=== PATIENT | male | born 1990 | race Caucasian/White ===

== ENCOUNTER 2016-09-13 10:30 | Day surgery (SDC) | payer BC ==
[~2016-09-13 10:30] MED LIST: Lactated Ringers 1,000 ML IV SCH; Sodium Chloride 0.9% 10 ML Syringe FLUSH PRN; Sodium Chloride 0.9% 2.5 ML Syringe FLUSH PRN
[2016-09-13] MEDS ORDERED: fentaNYL 100 MCG/2 ML SDV IVPUSH PRN ×4 (10:35→12:37)
--- NOTE | 2016-09-13 10:40 | PCM.PREANE ---
Preanesthetic Assessment - Anesthesia/Transfusion/Family Hx Anesthesia History: Prior Anesthesia Without Reaction - Review of Systems General: No Symptoms Pulmonary: No Symptoms Cardiovascular: No Symptoms Gastrointestinal: No symptoms Neurological: No Symptoms Other: Reports: None - Physical Assessment Height: 5 ft 10 in Weight: 99.79 kg ASA Class: 2E Mental Status: Alert & Oriented x3 Airway Class: Mallampati = 2 Dentition: Reports: Normal Dentition Thyro-Mental Finger Breadths: 3 Mouth Opening Finger Breadths: 3 ROM/Head Extension: Full Lungs: Clear to auscultation, Normal respiratory effort Cardiovascular: Regular Rate, Regular Rhythm - Allergies Allergies/Adverse Reactions: Allergies Allergy/AdvReac Type Severity Reaction Status Date / Time No Known Allergies Allergy Verified 10/07/13 14:24 - Acknowledgements Anesthesia Type Planned: General Anesthesia Pt an Appropriate Candidate for the Planned Anesthesia: Yes Alternatives and Risks of Anesthesia Discussed w Pt/Guardian: Yes Pt/Guardian Understands and Agrees with Anesthesia Plan: Yes PreAnesthesia Questionnaire HEENT History: Reports: None Cardiovascular History: Reports: None Respiratory History: Reports: None Gastrointestinal History: Reports: Other (See Below) Other Gastrointestinal History: chrohns Genitourinary History: Reports: None Musculoskeletal History: Reports: None Neurological History: Reports: None Psychiatric History: Reports: None Endocrine/Metabolic History: Reports: Obesity/BMI 30+ Hematologic History: Reports: None Immunologic History: Reports: Other (see below) (Hx of chronic Prednisone therapy) Oncologic (Cancer) History: Reports: None Dermatologic History: Reports: None - Infectious Disease History Infectious Disease History: Reports: None - Past Surgical History HEENT Surgical History: Reports: Oral surgery Other Musculoskeletal Surgeries/Procedures:: gynecomastia surgery Dermatological Surgical History: Reports: Plastic surgical reconstruction/repair - SUBSTANCE USE Smoking Status *Q: Never Smoker Tobacco Use Within Last Twelve Months: Smokeless Tobacco Recreational Drug Use History: No - HOME MEDS Home Medications: Home Meds Bacitracin [Bacitracin Oint 1 GM] 1 dose TOP DAILY #10 packet 02/01/16 [Rx] Ibuprofen [Motrin] 800 mg PO Q8H #30 tablet 02/01/16 [Rx] Mesalamine [Pentasa] 1,000 mg PO BID 02/01/16 [History] Prednisone [IMW: predniSONE] 30 mg PO WITHBREAKFAST 02/01/16 [History] - CURRENT (IN HOUSE) MEDS Current Meds: Current Medications Fentanyl (Sublimaze) 50 mcg IVPUSH Q5M PRN PRN Reason: Pain (severe 7-10) Stop: 09/14/16 10:35 Fentanyl (Sublimaze) 50 mcg IVPUSH Q45M PRN PRN Reason: Pain (severe 7-10) Stop: 09/13/16 12:30 Lactated Ringer's (Ringers, Lactated) 1,000 mls @ 300 mls/hr IV ASDIRECTED JABARI Stop: 09/13/16 13:49 Sodium Chloride (Saline Flush) 10 ml FLUSH ASDIRECTED PRN PRN Reason: Keep Vein Open Sodium Chloride (Saline Flush) 2.5 ml FLUSH ASDIRECTED PRN PRN Reason: Keep Vein Open Discontinued Medications Fentanyl (Sublimaze) 50 mcg IVPUSH Q5M PRN PRN Reason: Pain (severe 7-10) Stop: 09/13/16 12:30
[2016-09-13] MEDS ORDERED: Piperacillin/Tazobactam 3.375 GM in Sodium Chloride 0.9% 50 ML IV ONE (11:15)
[2016-09-13] MEDS ORDERED: Lidocaine 2% 5 ML SDV ONE (11:23)
[2016-09-13] MEDS ORDERED: Bupivacaine 0.25% 10 ML SDV ONE (11:23)
[2016-09-13] MEDS ORDERED: fentaNYL 250 MCG/5 ML SDV ONE (11:24)
[2016-09-13] MEDS ORDERED: Propofol 200 MG/20 ML SDV ONE (11:24)
[2016-09-13] MEDS ORDERED: Midazolam 1 MG/ML 2 ML SDV ONE (11:24)
[2016-09-13] MEDS ORDERED: Ondansetron 4 MG/2 ML SDV ONE (11:25)
[2016-09-13] MEDS ORDERED: Neostigmine Methylsulfate 1 MG/ML 5 ML Syringe ONE (11:25)
[2016-09-13] MEDS ORDERED: Rocuronium 10 MG/ML 10 ML Syringe ONE (11:25)
[2016-09-13] MEDS ORDERED: Hydrocortisone Sodium Succinate 100 MG/2 ML SDV ONE (11:29)
[2016-09-13] MEDS ORDERED: HYDROmorphone 2 MG/ML Syringe ONE (11:29)
[2016-09-13] MEDS ORDERED: HYDROmorphone 2 MG/ML Syringe IVPUSH ONE (12:37)
--- NOTE | 2016-09-13 13:00 | PCM.OPNOTE ---
- General Post-Op/Procedure Note Date of Surgery/Procedure: 09/13/16 Operative Procedure(s): Exam under anesthesia, seton placement Findings: Anterior intrasphincteric anal fistula, posterior anal fissure Pre Op Diagnosis: perianal abscess Post-Op Diagnosis: Anterior anal fistula, posterior anal fissure Anesthesia Technique: General ET tube Primary Surgeon: Mee Baker EBL in mLs: 3 Surgical Drain/Tube Type: [place] Complications: none Condition: Good
[2016-09-13 18:11] VITALS: BP 119/68
[2016-09-13] MEDS ORDERED: Acetaminophen/oxyCODONE 325-5 MG Tab PO ONE (20:00)
--- NOTE | 2016-09-13 20:58 | OR ---
SURGEON: SMITH JACKSON MD DATE OF PROCEDURE: 09/13/2016 PREOPERATIVE DIAGNOSIS: Perianal abscess. POSTOPERATIVE DIAGNOSIS: Posterior anal fissure, anterior intersphincteric perianal fistula and perianal abscess. PROCEDURE: Exam under anesthesia, seton placement. ANESTHESIA: General endotracheal anesthesia. ESTIMATED BLOOD LOSS: 3 mL. FINDINGS: Chronic appearing posterior anal fissure. Anterior intersphincteric perianal fistula associated with perianal abscess. COMPLICATIONS: None. INDICATIONS: The patient is a 26-year-old male with a history of Crohn's disease. He is currently on Remicade. The patient developed perianal pain last Friday which has progressively worsened. The patient is now having issues with stool leakage as well as erythema, induration, and tenderness along the left buttock cheek. The patient's last bowel movement was yesterday and was slightly mucousy and bloody. The patient states that this is his normal bowel movement. On exam in the clinic, the patient had erythema and extreme tenderness on examination of the perianal area. I was unable to assist the area fully secondary to pain. Given his findings, I explained that I would need to examine him further under anesthesia. The patient and I discussed exam under anesthesia with possible incision and drainage of a perianal abscess and/or seton placement if the patient had a perianal fistula. We discussed the risks, including bleeding, further infection, or damage to surrounding structures, including the sphincteric muscles which may alter continence. The patient verbalized understanding and wishes to proceed. Of note, the patient has been on prednisone in the past, but has not been on it for 6 months. Because of this, we will not be giving him a perioperative steroid burst. The patient was admitted and given IV Zosyn perioperatively. NARRATIVE: The patient was brought to the operating room on the OR cart. The time-out was completed verifying the patient's name, age, date of , allergies, and procedure to be performed. General endotracheal anesthesia was induced. Once the patient was intubated, he was placed in the prone position on the operating room table. Care was taken to appropriately pad all of the patient's joints and bony surfaces. The buttock cheeks were taped laterally to allow adequate visualization of the perianal area. The anus and buttocks were prepped and draped in the usual standard fashion. On initial inspection, the patient was noted to have a chronic appearing posterior anal fissure. He was also noted to have an opening along the anterior anus along the midline. There was induration and erythema along the tissues just anterior to the anus. Upon palpation of this area, a large amount of purulence was expressed from the anterior anal fistula. No opening was noted around the anoderm. A small fistula probe was placed through the anterior anal fistula, which passed easily into a large cavity that tracked anteriorly. The fistula probe was angled towards the skin and there was a tenting of the skin along the anterior midline approximately 2 cm from this area. Using a 15 blade, I made a small cruciate incision over the top of the fistula probe. Cautery was used to then dissect down into the subcutaneous tissues, but I quickly encountered the fistula probe itself. The decision was made to place a loose seton through the area to allow adequate drainage. A small red rubber seton was passed through my skin opening through the anterior fistula. This was then made into a loop and secured using 2-0 silk ties. The area that contained the silk ties on the seton was then rotated so that the ties were inside the perianal abscess cavity. A small fistula probe was passed once again into the cavity, but no further areas of tracking were noted. I used a 0.25% Marcaine plain to anesthetize the area around the anterior anus. I then performed a bilateral peroneal nerve block using 10 mL of 0.25% Marcaine plain on both the right and left side. Using a bivalve retractor, I inspected the remainder of the anus. No other areas of drainage were noted. On digital rectal exam, no further areas of thickening or fistulas were noted. I did not note any inflammation of the perianal tissue more proximally. Fluffs were then placed next to the seton and were secured in place using mesh panties. The patient was then placed in supine position on the OR cart, awoken, and extubated successfully. All counts were complete and correct at the end of the case. The patient was taken to the PACU in stable condition. ANTONIO ALDANA /[id number] ANDREW
== END 2016-09-13 20:20 | disposition home or self-care (01) ==
LOC: MW.SDS 10:30 → MW.MS 10:34 → MW.SDS 20:20
PROVIDERS: ATTEND Surgery
DX: K60.3 Anal fistula (principal); K60.2 Anal fissure, unspecified; K50.90 Crohn's disease, unspecified, without complications; E66.9 Obesity, unspecified; Z68.30 Body mass index [BMI] 30.0-30.9, adult; Z79.899 Other long term (current) drug therapy; Z98.890 Other specified postprocedural states
CPT/HCPCS: 46020; A9270; J1170; J2250; J2405; J2543; J3010; J7050; J7120; 00902; J1720; J2704

== ENCOUNTER 2017-02-20 17:44 | Emergency (ER) | payer OTHER, BC ==
[2017-02-20] MEDS ORDERED: ceFAZolin 2 GM in Premix Bag 1 BAG IV ONE (17:47)
[2017-02-20] MEDS ORDERED: Morphine 2 MG/ML Syringe IVPUSH ONE (17:48)
[2017-02-20] MEDS ORDERED: Bupivacaine 0.25% 10 ML SDV INJECT ONE (18:59)
[2017-02-20] MEDS ORDERED: Bupivacaine 0.25% 10 ML SDV ONE (19:00)
--- NOTE | 2017-02-20 19:33 | PCM.HP ---
H&P History of Present Illness - General Date of Service: 02/20/17 Admit Problem/Dx: left index finger open proximal phalanx fracture Source of Information: Patient, RN History Limitations: Reports: No Limitations - History of Present Illness Initial Comments - Free Text/Narative: left index finger burst type crush injury with open proiximal phalanx fracture. Seen at [facility] and sent to us for definitive management. Discussed surgery tonight Onset of Symptoms: Reports: Today, Sudden Duration of Symptoms: Reports: Hour(s): Location: Reports: Upper Extremity, Left Quality: Reports: Ache, Pressure Severity: Moderate Improves with: Reports: Rest Worsens with: Reports: Movement Context: Reports: Trauma Associated Symptoms: Reports: No Other Symptoms Left 2-Index finger Pain Score (Numeric/FACES): 3 - Related Data Allergies/Adverse Reactions: Allergies Allergy/AdvReac Type Severity Reaction Status Date / Time No Known Allergies Allergy Verified 02/20/17 18:02 Home Medications: Home Meds . [No Known Home Meds] 02/20/17 [History] Past Medical History - Past Health History Medical/Surgical History: Denies Medical/Surgical History HEENT History: Reports: None Cardiovascular History: Reports: None Respiratory History: Reports: None Gastrointestinal History: Reports: Other (See Below) (crohns disease on REmicaide) Other Gastrointestinal History: chrohns Genitourinary History: Reports: None Other Genitourinary History: gynecomastia Musculoskeletal History: Reports: None Neurological History: Reports: None Psychiatric History: Reports: None Endocrine/Metabolic History: Reports: Obesity/BMI 30+ Hematologic History: Reports: None Immunologic History: Reports: Other (See Below) Oncologic (Cancer) History: Reports: None Dermatologic History: Reports: None - Infectious Disease History Infectious Disease History: Reports: Chicken Pox - Past Surgical History HEENT Surgical History: Reports: Oral Surgery GI Surgical History: Reports: None Other Male Surgeries/Procedures: bilateral breats surgery; rectal fistula Other Musculoskeletal Surgeries/Procedures:: gynecomastia surgery Dermatological Surgical History: Reports: Plastic Surgical Reconstruction/Repair Social & Family History - Family History Family Medical History: Noncontributory - Tobacco Use Smoking Status *Q: Never Smoker Second Hand Smoke Exposure: Yes - Caffeine Use Caffeine Use: Reports: Coffee, Energy Drinks Caffeine Use Comment: at least 1 drink each/day - Recreational Drug Use Recreational Drug Use: No H&P Review of Systems - Review of Systems: Review Of Systems: See Below General: Reports: No Symptoms HEENT: Reports: No Symptoms Cardiovascular: Reports: No Symptoms Musculoskeletal: Reports: Hand Pain (left) Psychiatric: Reports: No Symptoms Neurological: Reports: No Symptoms Exam - Exam Exam: See Below - Vital Signs Vital Signs: Last Vital Signs Temp 98.7 F 02/20/17 17:58 Pulse Resp 18 02/20/17 17:58 BP 146/84 H 02/20/17 17:58 Pulse Ox 96 02/20/17 17:58 Weight: 246 lb 14.684 oz - Exam General: Alert, Oriented, Cooperative HEENT: EOMI Lungs: Clear to Auscultation, Normal Respiratory Effort Cardiovascular: Regular Rate, Regular Rhythm Extremities: Limited Range of Motion (able to wiggle but unable to move significantly due to pain. Tendons appear intact at least partially. ), Other Skin: Wound (open laceration to dorsal finger - 1cm) Neuro Extensive - Mental Status: Alert, Oriented x3 *Q Meaningful Use (ADM) - VTE *Q VTE Criteria *Q: - Stroke *Q Stroke Criteria *Q: - AMI *Q AMI Criteria *Q: - Problem List (1) Open fracture of proximal phalanx of left index finger SNOMED Code(s): 734983932 ICD Code: S62.611B - DISP FX OF PROXIMAL PHALANX OF L IDX FNGR, INIT FOR OPN FX Status: Acute Priority: High Current Visit: Yes Qualifiers: Encounter type: initial encounter Fracture alignment: displaced Qualified Code(s): S62.611B - Displaced fracture of proximal phalanx of left index finger, initial encounter for open fracture Problem List Initiated/Reviewed/Updated: Yes
[2017-02-21 02:36] VITALS: BP 128/80
[2017-02-21] MEDS ORDERED: Lactated Ringers 1,000 ML IV SCH (08:00)
[2017-02-21] MEDS ORDERED: ceFAZolin 2 GM in Premix Bag 1 BAG IV ONE (08:00)
== END 2017-02-20 19:45 | disposition home or self-care (01) ==
LOC: MW.ED 17:44
DX: S62.611B Displaced fracture of proximal phalanx of left index finger, initial encounter for open fracture (principal); W23.1XXA Caught, crushed, jammed, or pinched between stationary objects, initial encounter
CPT/HCPCS: 96365; 96375; 99284; J0690; J2270

== ENCOUNTER 2017-02-21 06:42 | Day surgery (SDC) | payer OTHER, BC ==
[2017-02-21] MEDS ORDERED: fentaNYL 100 MCG/2 ML SDV ONE (07:25)
[2017-02-21] MEDS ORDERED: Midazolam 1 MG/ML 2 ML SDV ONE (07:25)
[2017-02-21] MEDS ORDERED: Propofol 200 MG/20 ML SDV ONE ×2 (07:25→07:47)
[2017-02-21] MEDS ORDERED: Bupivacaine 25%/EPINEPHrine/PF 30 ML ONE (07:26)
--- NOTE | 2017-02-21 07:29 | PCM.PREANE ---
Preanesthetic Assessment - Anesthesia/Transfusion/Family Hx Anesthesia History: Prior Anesthesia Without Reaction Family History of Anesthesia Reaction: No Transfusion History: No Prior Transfusion(s) Intubation History: Unknown - Review of Systems General: No Symptoms Pulmonary: No Symptoms Cardiovascular: No Symptoms Gastrointestinal: No Symptoms Neurological: No Symptoms Other: Reports: None - Physical Assessment O2 Sat by Pulse Oximetry: 98 Respiratory Rate: 16 Vital Signs: Last Vital Signs Temp 36.7 C 02/21/17 07:23 Pulse 72 02/21/17 07:23 Resp 16 02/21/17 07:23 BP 121/68 02/21/17 07:23 Pulse Ox 98 02/21/17 07:23 ASA Class: 2 Mental Status: Alert & Oriented x3 Airway Class: Mallampati = 2 Dentition: Reports: Normal Dentition Thyro-Mental Finger Breadths: 3 Mouth Opening Finger Breadths: 3 ROM/Head Extension: Full Lungs: Clear to Auscultation, Normal Respiratory Effort Cardiovascular: Regular Rate, Regular Rhythm - Allergies Allergies/Adverse Reactions: Allergies Allergy/AdvReac Type Severity Reaction Status Date / Time No Known Allergies Allergy Verified 02/20/17 18:02 - Blood Blood Available: No - Anesthesia Plan Pre-Op Medication Ordered: None - Acknowledgements Anesthesia Type Planned: General Anesthesia Pt an Appropriate Candidate for the Planned Anesthesia: Yes Alternatives and Risks of Anesthesia Discussed w Pt/Guardian: Yes Pt/Guardian Understands and Agrees with Anesthesia Plan: Yes PreAnesthesia Questionnaire - Past Health History Medical/Surgical History: Denies Medical/Surgical History HEENT History: Reports: None Cardiovascular History: Reports: None Respiratory History: Reports: None Gastrointestinal History: Reports: Other (See Below) (crohns disease on REmicaide) Other Gastrointestinal History: Chrohn's disease in remission - on Ramicade Genitourinary History: Reports: None Other Genitourinary History: gynecomastia Musculoskeletal History: Reports: None Neurological History: Reports: None Psychiatric History: Reports: None Endocrine/Metabolic History: Reports: Obesity/BMI 30+ Hematologic History: Reports: None Immunologic History: Reports: Other (See Below) Oncologic (Cancer) History: Reports: None Dermatologic History: Reports: None - Infectious Disease History Infectious Disease History: Reports: Chicken Pox - Past Surgical History HEENT Surgical History: Reports: Oral Surgery GI Surgical History: Reports: None Other Male Surgeries/Procedures: bilateral breats surgery for gynecomastia; rectal fistula exc. x2 Other Musculoskeletal Surgeries/Procedures:: gynecomastia surgery Dermatological Surgical History: Reports: Plastic Surgical Reconstruction/Repair - SUBSTANCE USE Smoking Status *Q: Never Smoker Tobacco Use Within Last Twelve Months: Smokeless Tobacco Second Hand Smoke Exposure: Yes Recreational Drug Use History: No - HOME MEDS Home Medications: Home Meds . [No Known Home Meds] 02/20/17 [History]
[2017-02-21] MEDS ORDERED: ceFAZolin 2 GM in Premix Bag 1 BAG IV ONE (07:30)
[2017-02-21] MEDS ORDERED: Ketorolac 30 MG/ML SDV ONE (07:33)
[2017-02-21] MEDS ORDERED: Dexamethasone 4 MG/ML 5 ML MDV ONE (07:33)
[2017-02-21] MEDS ORDERED: Ondansetron 4 MG/2 ML SDV ONE (07:33)
[2017-02-21] MEDS ORDERED: Lactated Ringers 1,000 ML IV SCH (08:15)
[2017-02-21] MEDS ORDERED: fentaNYL 100 MCG/2 ML SDV IVPUSH PRN (08:44)
--- NOTE | 2017-02-21 09:07 | PCM.POSTAN ---
POST ANESTHESIA ASSESSMENT - MENTAL STATUS Mental Status: Alert, Oriented - RESPIRATORY Respiratory Status: Respiratory Rate WNL, Airway Patent, O2 Saturation Stable - CARDIOVASCULAR CV Status: Pulse Rate WNL, Blood Pressure Stable - GASTROINTESTINAL GI Status: No Symptoms - PAIN Pain Score: 3 - POST OP HYDRATION Hydration Status: Adequate & Stable - OBSERVATIONS Free Text/Narrative:: no anesthesia problems
[2017-02-21] MEDS ORDERED: Acetaminophen/HYDROcodone 325-5 MG Tab PO PRN (10:21)
--- NOTE | 2017-02-21 13:05 | CR ---
EXAMINATION: Left hand HISTORY: Fracture COMPARISON: None TECHNIQUE: 4 fluoroscopic images provided FINDINGS/IMPRESSION: Operative control films demonstrate 2 pins fixating a fracture through the proxi mal aspect of the proximal second phalanx.
--- NOTE | 2017-02-21 13:24 | PCM.OPNOTE ---
- General Post-Op/Procedure Note Date of Surgery/Procedure: 02/21/17 Operative Procedure(s): closed reduction pin fixation of the left index finger proximal phalanx fracture Pre Op Diagnosis: open left index finger proximal phalanx fracture Post-Op Diagnosis: Same Anesthesia Technique: General LMA, Local Primary Surgeon: Emilie Copeland Crisis Clinician: Lauren Barksdale Complications: None Condition: Good Free Text/Narrative:: Intake & Output 02/20/17 02/21/17 02/21/17 23:59 07:59 15:59 Intake Total 950 Balance 950
[2017-02-21 13:53] VITALS: BP 116/63
--- NOTE | 2017-02-27 17:10 | OR ---
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 PREOPERATIVE DIAGNOSIS: Open left index finger proximal phalanx fracture. POSTOPERATIVE DIAGNOSIS: Open left index finger proximal phalanx fracture. PROCEDURE: Closed reduction and pin fixation of the left index finger proximal phalanx fracture. INDICATIONS: Mr. An is a 27-year-old gentleman, who was seen last night in the emergency room for likely open left index finger proximal phalanx fracture. He was copiously irrigated prior to presentation with us. He had unfortunately eaten on his way to the emergency room and thus it was discussed with him to wait 8 hours or do it the next morning. The area was copiously irrigated and though this is technically an open fracture, the open area is a small likely burst injury (<0.5cm) and does not likely communicate directly with bone. In addition was copiously irrigated and anesthetized for him to ensure minimal risk of infection. He elected to proceed the next morning. The patient was brought back this morning, registered and brought to the operating theater in order to reduce the fracture and pin it in place. There appears to be good healthy tissue in between the small open wound on the dorsum of the skin and there was no need for even a suture on this small wound. It was still copiously irrigated and the patient was given antibiotics in the ER last night and preoperative antibiotics today. PROCEDURE IN DETAIL: After informed consent was obtained and placed on the chart, the patient was brought to the operating theater and laid in the supine position. After adequate general anesthetic was obtained, local anesthesia was infiltrated in the finger and a time-out had been completed to confirm side and site. Attention was paid to close reduction. Using fluoroscopy to confirmation of reduction was appreciated and two 0.45 K-wires were placed in a crossed fashion over the proximal phalanx fracture. Once adequately reduced and pinned, the wounds were copiously irrigated. The pins were trimmed and the Jurgan balls were placed to protect these. The patient was placed in a short-arm volar splint with 4-inch plaster 15 thick Matthew, Xeroform, and 2 and 4-inch Jesus wrap. The patient tolerated the procedure well. All counts and needles were correct at the end of the case. FOLLOWUP INSTRUCTIONS: The patient will see us in clinic in 10 to 14 days sooner if any problems, questions, or concerns. He will continue antibiotics as prescribed. PROSPERGGTPROSPER / JOVAN /[id number] MTDD
--- NOTE | 2017-03-05 10:43 | PCM.HPR ---
H & P Addendum review - H & P Addendum Review Date of Original H & P: 02/20/17 Date Reviewed: 02/21/17 Time Reviewed: 07:45 Patient was Examined: No Changes Please Note any Changes: H&P is less than 12 hours old and does not need addendum review.
== END 2017-02-21 10:45 | disposition home or self-care (01) ==
LOC: MW.SDS 06:42
PROVIDERS: ATTEND Plastic Surgery
DX: S62.611B Displaced fracture of proximal phalanx of left index finger, initial encounter for open fracture (principal); Z98.818 Other dental procedure status; Z98.890 Other specified postprocedural states
CPT/HCPCS: 26727; 76000; A9270; J1100; J1885; J2250; J2405; J3010; J7120; 01810; J2704